=== PATIENT | male | born 1980 | race Caucasian/White ===

== ENCOUNTER 2020-02-26 12:15 | Outpatient (CLI) | payer BC, SELFPAY ==
--- NOTE | ~2020-02-26 | MMUS_ITS ---
EXAMINATION: MM diagnostic norah BI w riki, US breast BI limited HISTORY: Patient on testosterone booster supplement. TECHNIQUE: Additional 3-D tomosynthesis images of the breasts were performed and synthetic 2-D images were generated. CAD analysis was submitted and interpreted. High resolution bilateral breast ultraso und was performed. COMPARISON: None BREAST PARENCHYMAL COMPOSITION: Breast composed of scattered areas of fibroglandular density. FINDINGS: MAMMOGRAPHIC FINDINGS: There is bilateral gynecomastia. No suspicious masses, calcifications or architectural distortion are identified in either breast to suggest malignancy. ULTRASOUND: Targeted bilateral breast ultrasound: Normal heterogeneous echotexture in the area of palpable concern in both breasts. No suspicious kimi s are identified. IMPRESSION: 1. No mammographic or sonographic evidence for malignancy. Bilateral gynecomastia. BI-RADS CATEGORY 2 - BENIGN FINDINGS Reviewed, dictated and finalized at location A. IMPRESSION: 1. No mammographic or sonographic evidence for malignancy. Bilateral gynecomast ia. BI-RADS CATEGORY 2 - BENIGN FINDINGS
== END 2020-02-26 12:16 | disposition home or self-care (01) ==
LOC: ANHIMG 12:22
PROVIDERS: PCP Internal Medicine; Visit Provider Internal Medicine
DX: N62 Hypertrophy of breast (principal)
CPT/HCPCS: 76642; 77062; 77066; G0279

== ENCOUNTER 2020-07-17 00:47 | Day surgery (SDC) | payer BC, SELFPAY ==
[2020-07-16 16:54] VITALS: BMI 26.4
[2020-07-17] VITALS (8 sets, daily range): BP systolic 89–118; BP diastolic 40–76; PULSE 79–99; RESP 14–20; TEMP 36.6–36.9; O2SAT 96–99
--- NOTE | 2020-07-17 12:10 | P.PNAN_ITS ---
Anes - Initial Pre Proc Eval Procedure: Operation Date: 07/17/20 13:30 Proposed Procedures p Rectal Exam Under Anesthesia, Right Incision and Drainage of Complex Lisa- Rectal Abscess - Kisha Bridges MD Date/Time: 07/17/20 12:10 Surgeon: Kisha Bridges MD Pre Op Diagnosis: lisa rectal abscess Patient Data Age: 40 Gender: M Height: 1.75 m Weight: 81 kg Allergies Allergy/AdvReac Type Severity Reaction Status Date / Time grass pollen Allergy Unknown allergic Verified 07/16/20 16:36 house dust Allergy Unknown allergic Verified 07/16/20 16:36 mold Allergy Unknown allergic Verified 07/16/20 16:36 Home Medications Medication Instructions Recorded Confirmed Type loratadine 10 mg tablet 10 mg PO DAILY #90 tablet 01/08/20 07/16/20 Rx rosuvastatin 10 mg tablet 10 mg PO DAILY #90 tablet 01/08/20 07/16/20 Rx umeclidinium 62.5 mcg-vilanterol 1 inhalation INHALATION DAILY #60 01/08/20 07/16/20 Rx 25 mcg/actuation powdr for each inhalation cephalexin 500 mg capsule 500 mg PO Q8H 10 Days #30 cap 07/15/20 07/16/20 Rx hydrocodone 5 mg-acetaminophen 325 1 tablet PO Q6H PRN #20 tablet 07/16/20 07/16/20 Rx mg tablet Patient hx anesthesia problems: none Family hx anesthesia problems: none PMFSH Past Medical History Medical History Asthma as a child BMI 26.0-26.9,adult Dyslipidemia Perirectal abscess Tobacco use Surgical History Surgical History Rectal abscess removed in 2011 Family History Family History Sibling Cancer Other Diabetes mellitus Social History Social History Smoking packs per day: 1 Smoking cigarettes per day: 20.0 Years smoked: 24 Smoking pack-years: 24.00 Smoking status: Current every day smoker Tobacco type: cigarettes Alcohol intake: current Substance use: unknown Additional occupation/education comments: [employer] Gender identity (if verbalized by the patient): Male Spiritual care concerns: No Anes - Eval Final PreProcedure Day of Procedure 12/30/20 12:10 Patient weight: overweight Heart: regular rate and rhythm Lungs: clear to auscultation and normal air movement Airway: Mallampati scale class II Neurological: alert and oriented Last oral intake: >/= 8 hours ASA classification: III Emergent: no Anesthetic plan: proceed Anesthesia type and monitoring: general LMA and ETT Informed Consent: The patient's anesthetic plan and its attendant risks and benefits were discussed with the patient/family/POA. Questions were solicited and answers provided to the satisfaction of the patient/family/POA.
[2020-07-17] MEDS: LACTATED RINGERS 1,000 ML 30 ML IV CONT ×2 (12:31→15:51)
[2020-07-17] MEDS: KETOROLAC 15 MG/ML VIAL (*BKC) IV PUSH (12:55)
--- NOTE | 2020-07-17 14:14 | SUR.PREOP ---
1405-PT AWARE SURGEON DELAYS SELF ADDITIONAL 30-45 .
--- NOTE | 2020-07-17 14:59 | WPDHPUPDATE1 ---
History and Physical Update Update Date/Time: 07/17/20 14:59 History and Physical has been reviewed, including an updated exam of the patient. There are NO changes in the patient's condition. Risks, benefits, and alternatives have been discussed and questions answered. Patient agrees to proceed with procedure.
[2020-07-17] MEDS: ceFAZolin 2 GM/D5W 50 ML 2 GM/50 ML BAG IVPB (15:18)
[2020-07-17] MEDS: LIDOCAINE HCL 1% LOCAL INJ 10 ML VIAL 20 ML INFILTRATE (15:40)
--- NOTE | 2020-07-17 15:48 | P.OP_ITS ---
Procedure Note - Detailed Date of procedure: 07/17/20 Pre-op diagnosis: yomaira rectal abscess Post-op diagnosis: same Procedure performed: Exam under anesthesia, complex incision and drainage right perirectal abscess measuring approximately 4 x 3 x 3 cm Description of procedure: The patient was taken to the operating room and placed in the modified lithotomy position. After adequate induction of general anesthesia, the patient was prepped and draped in the normal sterile fashion. Time-out was then done to verify patient's identity as well as procedure being performed. I began by locally anesthetizing around the perirectal area. Once adequately done, I 1st did a digital rectal exam which was unremarkable. I then placed the [place] retractor into the rectal vault and again no obvious pathology was noted. I then examined the area around the perirectal abscess in the right. The abscess cavity measured approximately 4 x 3 cm and there was noted surrounding erythema, induration, and fluctuance. I then made an incision over the most fluctuant area of this abscess with a 15 blade scalpel. Upon getting into this cavity a moderate amount of purulence drainage was noted. I then used a hemostat to bluntly dissect around this cavity and completely opened this cavity. Once done the cavity measured 4 x 3 x 3 cm. I then packed this area with quarter-inch iodoform to keep the area open and draining. Sterile dressing was placed. The patient tolerated the procedure well and was extubated in the operating room postoperatively. He will be transferred to the recovery room in stable condition. Implants: none Anesthesia: JAIDAA Surgeon: Kisha Bridges MD Estimated blood loss (mL): 5 Drains: No Packing: Yes Pathology: none sent Complications: No immediate complications Condition: stable Disposition: PACU Findings: right perirectal abscess
== END 2020-07-17 17:41 | disposition home or self-care (01) ==
PROVIDERS: PCP Internal Medicine; Visit Provider Surgery
PROC: (CPT 45005; principal; 2020-07-17 13:30)
DX: K61.1 Rectal abscess (principal); J45.909 Unspecified asthma, uncomplicated; E78.5 Hyperlipidemia, unspecified; F17.210 Nicotine dependence, cigarettes, uncomplicated
CPT/HCPCS: 45005; A9270; J0690; J1100; J1885; J2250; J2405; J2704; J3010; J7120